=== PATIENT | male | born 1965 | race Hispanic/Latino ===

== ENCOUNTER 2021-05-02 21:35 | Emergency (ER) | payer OTHER, SELFPAY ==
[2021-05-02 21:41] VITALS: BP 143/84; PULSE 61; RESP 18; TEMP 36.6; O2SAT 100
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
[2021-05-02] MEDS: OXYMETAZOLINE HCL 0.05% NAS 15 ML BTL (*BKC) 1 SPRAY NASAL (22:17)
[2021-05-02 22:18] VITALS: BP 126/76; PULSE 62; RESP 16; O2SAT 98
== END 2021-05-02 22:26 | disposition home or self-care (01) ==
PROVIDERS: Emergency Provider Family Medicine
DX: R04.0 Epistaxis (principal); E11.9 Type 2 diabetes mellitus without complications; Z79.84 Long term (current) use of oral hypoglycemic drugs
CPT/HCPCS: 99283; A9270

== ENCOUNTER 2021-09-02 08:25 | Outpatient (CLI) | payer OTHER, SELFPAY ==
--- NOTE | ~2021-09-02 | XR_ITS ---
EXAMINATION: XR foot RT min 3V DATE: 09/02/2021 08:45 INDICATION: Right foot pain. TECHNIQUE: 4 views of right foot were obtained. COMPARISON: None. FINDINGS: Bone alignment is normal. No fracture. There is mild osteoarthritis of first metatarsophala ngeal joint and some of the interphalangeal joints. There are enthesophytes at the posterior and plan tar aspects of calcaneal tuberosity. IMPRESSION: 1. Mild polyarticular osteoarthritis. Reviewed, dictated and finalized at location A. 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
== END 2021-09-02 08:26 ==
PROVIDERS: PCP Nurse Practitioner Family; Visit Provider Nurse Practitioner Family
DX: M19.071 Primary osteoarthritis, right ankle and foot (principal)
CPT/HCPCS: 73630

== ENCOUNTER 2024-04-20 08:22 | Emergency (ER) | payer OTHER, SELFPAY ==
--- NOTE | ~2024-04-20 | XR_ITS ---
EXAMINATION: XR shoulder LT min 2V DATE: 04/20/2024 09:54 INDICATION: Left shoulder pain. TECHNIQUE: 4 views of left shoulder were obtained. COMPARISON: None. FINDINGS: Alignment is normal. No fracture. There is mild osteoarthritis of glenohumeral joint and se juan osteoarthritis of acromioclavicular joint. Subacromial spurring is noted. IMPRESSION: 1. Polyarticular osteoarthritis. Reviewed, dictated and finalized at location A.
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
[2024-04-20 08:27] VITALS: BP 141/84; PULSE 51; RESP 20; TEMP 36.3; O2SAT 100
[2024-04-20 08:32] VITALS: BP 141/84; PULSE 52; RESP 19; O2SAT 100
[2024-04-20 08:46] VITALS: BP 126/81; PULSE 56; RESP 14; O2SAT 100
[2024-04-20 09:01] VITALS: BP 146/82; PULSE 55; RESP 16; O2SAT 100
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
[2024-04-20] MEDS: HYDROcodone/acetaminophen (*CRX) 5-325 MG TABLET 1 TAB PO (09:34)
[2024-04-20 10:31] VITALS: BP 134/82; PULSE 56; RESP 16; TEMP 36.7; O2SAT 99
== END 2024-04-20 10:33 | disposition home or self-care (01) ==
PROVIDERS: Emergency Provider Student in an Organized Health Care Education/Training Program
DX: S19.9XXA Unspecified injury of neck, initial encounter (principal); S49.92XA Unspecified injury of left shoulder and upper arm, initial encounter; S59.901A Unspecified injury of right elbow, initial encounter; S50.811A Abrasion of right forearm, initial encounter; M19.012 Primary osteoarthritis, left shoulder; I10 Essential (primary) hypertension; E11.9 Type 2 diabetes mellitus without complications; Z79.84 Long term (current) use of oral hypoglycemic drugs; V49.40XA Driver injured in collision with unspecified motor vehicles in traffic accident, initial encounter
CPT/HCPCS: 72125; 73030; 73070; 99284; A9270

== ENCOUNTER 2025-05-09 03:37 | Emergency (ER) | payer OTHER, SELFPAY ==
[2025-05-09] VITALS (15 sets, daily range): BP systolic 122–144; BP diastolic 65–84; PULSE 84–91; RESP 14–20; TEMP 37.6–39.5; O2SAT 96–100
--- NOTE | ~2025-05-09 | XR_ITS ---
Examination: XR chest 1V portable Clinical History: uri Comparison: None Technique: Portable AP Findings: Patient slightly rotated. Heart size normal. Subtle hazy opacity right hemithorax likely overlying soft tissue artifact. No acute bony abnormality. IMPRESSION: 1. No acute cardiopulmonary findings given portable technique. Consider PA and lateral films with deep inspiration. Reviewed, dictated and finalized at location R.
--- NOTE | ~2025-05-09 | CT_ITS ---
EXAMINATION: CT abdomen pelvis w con DATE: 05/09/2025 06:08 INDICATION: Abdominal pain 5 days post colonoscopy with polypectomy TECHNIQUE: Computed tomography (CT) of the abdomen and pelvis was performed with 100 mL Omnipaque-350 intravenous contrast. Automated exposure control and iterative reconstruction technique were employed. The dose-length product was 1146.06 mGy-cm. COMPARISON: None FINDINGS: Lung bases are clear. Heart size normal. Atherosclerotic coronary artery calcification. No pericardial or pleural effusion. Liver, gallbladder, spleen, pancreas, bilateral adrenal glands and right kidney are normal. 1.6 cm left renal cyst. Bowels including the appendix are normal. No abnormal wall thic kening or obstruction. Decompressed bladder is unremarkable. No free intraperitoneal gas or fluid. No pathologically enlarged abdominal or pelvic lymphadenopathy. Mild scattered degenerative skeletal changes in the lumbar spine and pelvis IMPRESSION: 1. No acute intra-abdominal/pelvic process. Reviewed, dictated and finalized at location A.
[2025-05-09 04:26] LABS: Hematocrit 44.6 % (42.0-52.0); Hemoglobin 14.1 g/dL (14.0-18.0); Immature Granulocyte Percent A 0.4 % (0-0.5); Immature Platelet Fraction Pct 4.2 % (0.9-11.2); Lymphocytes Absolute Auto 1.55 K/mm3 (0.9-3.2); Mean Corpuscular HGB Conc 31.6 g/dl (32-36); Mean Corpuscular Hemoglobin 28.8 pg (26-34); Mean Corpuscular Volume 91.2 fl (80-100); Nucleated Red Blood Cells Absolute Auto 0.000 K/mm3 (0.0-0.012); Nucleated Red Blood Cells Perc 0.0 % (0.0-0.2); Platelet Count Result 166 k/mm3 (150-375); Red Blood Count 4.89 M/mm3 (4.6-6.20); White Blood Count 10.2 K/mm3 (4.5-10.0)
--- NOTE | 2025-05-09 04:34 | ECG_ITS ---
Test Date: 2025-05-09 04:41:07 Measurements Intervals [place] Rate: 78 P: 10 AL: 150 QRS: 13 QRSD: 98 T: 3 QT: 355 QTc: 406 Interpretive Statements SINUS RHYTHM NORMAL ELECTROCARDIOGRAM No previous ECG available for comparison Electronically Signed On 05-10-2025 15:33:49 CDT by Kan Tariq M.D.
--- NOTE | 2025-05-09 04:35 | PC.NURSE ---
vrbo edp zych - ekg, cxr, covid/flu/rsv swab
--- NOTE | 2025-05-09 04:41 | PC.NURSE ---
red and green top hemolyzed - dali reilly notified
[2025-05-09 05:07] LABS: Add Urine Microscopic? YES; Appearance Urine Clear (Clear); Glucose Urine UA Negative (Negative); Leukocyte Esterase Ur 2+ LEU/UL (Negative); Nitrate Urine Negative (Negative); Non Pathogenic Casts 0-2; Specific Grav Ur 1.017 (1.001-1.035)
[2025-05-09 05:12] LABS: Alanine Aminotransferase 29 U/L (6-50); Albumin Level 4.2 g/dL (3.5-5.1); Alkaline Phosphatase 87 U/L (38-126); Anion Gap 10 mmol/L (4-12); Aspartate Amino Transferase 27 U/L (17-59); Bilirubin,Total 1.0 mg/dL (0.2-1.3); Blood Urea Nitrogen 12 mg/dL (9-20); Calcium 9.1 mg/dL (8.4-10.2); Carbon Dioxide 22 mmol/L (22-30); Chloride 105 mmol/L (98-107); Estimated CRCL calculation 91 ml/min; Estimated Glomerular Filt Rate > 60; Glucose 147 mg/dL (65-110); Potassium 4.0 mmol/L (3.4-5.0); Sodium 137 mmol/L (137-145); Total Protein 7.7 g/dL (6.3-8.2)
[2025-05-09] MEDS: SODIUM CHLORIDE 0.9% IV 2,000 ML 999 ML IV CONT (05:31)
[2025-05-09 05:38] LABS: Influenza A QL RT-PCR Negative (Negative); Influenza B QL RT-PCR Negative (Negative); RSV RNA, RT-PCR Negative (Negative); SARS-CoV-2 RNA PCR Negative (Negative)
[2025-05-09] MEDS: cefTRIAXone 1 GM in SODIUM CHLORIDE 0.9% IV 50 ML 100 ML IVPB (06:38)
--- NOTE | 2025-05-09 06:42 | ED.GENADULT ---
HPI - General Adult General Chief complaint: Upper Respiratory Infection <Geovany Munoz MD - Last Filed: 05/09/25 18:55> Stated complaint: chills <Geovany Munoz MD - Last Filed: 05/09/25 18:55> Time Seen by Provider: 05/09/25 03:59 <Geovany Munoz MD - Last Filed: 05/09/25 18:55> History of Present Illness HPI narrative: This is a 60-year-old male history diabetes presenting for fever and chills. At midnight of last night patient had sudden onset of fever and chills. Patient body aches. He denies chest pain difficulty breathing cough, nausea vomiting or diarrhea. He has had pain on urination for the last week. He has also pain in the left flank. Patient had a colonoscopy with polypectomy 5 days ago. <Geovany Munoz MD - Last Filed: 05/09/25 18:55> Related Data Home medications: Home Medications ?Medication ?Instructions ?Recorded ?Confirmed ?Last Taken ?Type metformin 500 mg tablet mg 05/02/21 Unknown History <Geovany Munoz MD - Last Filed: 05/09/25 18:55> Allergies/adverse reactions: Allergies Allergy/AdvReac Type Severity Reaction Status Date / Time No Known Allergies Allergy Verified 05/09/25 03:52 <Geovany Munoz MD - Last Filed: 05/09/25 18:55> [facility] Past Medical History Medical History: Medical History Diabetes mellitus Hypertension <Geovany Munoz MD - Last Filed: 05/09/25 18:55> Social History Social History: Social History (Updated 04/20/24 @ 10:32 by Richelle Rdz MD) Social History: Initially from [place]; Amharic as second language Has a daughter Smoking status: Never smoker Occupation/Education: occupation 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 <Geovany Munoz MD - Last Filed: 05/09/25 18:55> Course Vital Signs Vital signs: Vital Signs Temperature 103.1 F H 05/09/25 03:42 Pulse Rate 90 05/09/25 03:42 Respiratory Rate 14 05/09/25 03:42 Blood Pressure 139/77 05/09/25 03:42 Pulse Oximetry 99 05/09/25 03:42 Oxygen Delivery Room Air 05/09/25 03:42 Temperature 99.6 F 05/09/25 07:32 Pulse Rate 86 05/09/25 07:32 Respiratory Rate 18 05/09/25 07:32 Blood Pressure 133/76 05/09/25 07:32 Pulse Oximetry 100 05/09/25 07:32 Oxygen Delivery Room Air 05/09/25 03:50 <Geovany Munoz MD - Last Filed: 05/09/25 18:55> Vital Signs Temperature 103.1 F H 05/09/25 03:42 Pulse Rate 90 05/09/25 03:42 Respiratory Rate 14 05/09/25 03:42 Blood Pressure 139/77 05/09/25 03:42 Pulse Oximetry 99 05/09/25 03:42 Oxygen Delivery Room Air 05/09/25 03:42 Temperature 99.6 F 05/09/25 07:32 Pulse Rate 86 05/09/25 07:32 Respiratory Rate 18 05/09/25 07:32 Blood Pressure 133/76 05/09/25 07:32 Pulse Oximetry 100 05/09/25 07:32 Oxygen Delivery Room Air 05/09/25 03:50 <Kulwant Calixto MD - Last Filed: 05/09/25 17:21> Medical Decision Making MDM Narrative Medical decision making narrative: -Course: 6 year male presenting with sudden onset of fever and chills. Febrile on arrival at 103. Patient has been complaining dysuria for 5 days. The lungs are clear and he has no respiratory complaints. He had a colonoscopy 5 days ago but his abdomen is soft nontender no guarding rebound. Urine was indicative infection. Vitals are otherwise stable. White count is 10.2. Patient given fluid resuscitation, 1 dose of ceftriaxone and Tylenol and Toradol. He has been signed out to the physician pending completion of his CT abdomen pelvis unresponsive treatment. Patient care was signed out to me by the overnight physician with CT pending. Patient was treated for pyelonephritis. Patient's white blood cell count is 10.2 with a hemoglobin of 14.1. No significant abnormalities on the CMP. UA was positive for infection with greater than 100 white blood cells and 6-10 RBCs. Patient was started on antibiotics and urine culture was ordered. CT abdomen pelvis was ordered to evaluate for additional pathology and no additional acute findings were identified. Patient will be discharged home with antibiotics for his urinary tract infection. Patient family updated the results of the workup they are comfortable the plan for discharge and close follow-up. <Geovany Munoz MD - Last Filed: 05/09/25 18:55> -Course: 6 year male presenting with sudden onset of fever and chills. Febrile on arrival at 103. Patient has been complaining dysuria for 5 days. The lungs are clear and he has no respiratory complaints. He had a colonoscopy 5 days ago but his abdomen is soft nontender no guarding rebound. Urine was indicative infection. Vitals are otherwise stable. White count is 10.2. Patient given fluid resuscitation, 1 dose of ceftriaxone and Tylenol and Toradol. He has been signed out to the physician pending completion of his CT abdomen pelvis unresponsive treatment. -DDX includes but is not limited to: -Co-morbidities complicating care: -Social determinants of health: -External Chart Review: -Hx from independent Sources: -Independent interpretation of studies: -Discussion of Management/Consultants: -Dx tests considered but not ordered: -Procedures: -Interventions: -Shared decision making / Disposition: -RX --- Patient care was signed out to me by the overnight physician with CT pending. Patient was treated for pyelonephritis. Patient's white blood cell count is 10.2 with a hemoglobin of 14.1. No significant abnormalities on the CMP. UA was positive for infection with greater than 100 white blood cells and 6-10 RBCs. Patient was started on antibiotics and urine culture was ordered. CT abdomen pelvis was ordered to evaluate for additional pathology and no additional acute findings were identified. Patient will be discharged home with antibiotics for his urinary tract infection. Patient family updated the results of the workup they are comfortable the plan for discharge and close follow-up. <Kulwant Calixto MD - Last Filed: 05/09/25 17:21> Differential Diagnosis Differential Diagnosis: Ureteral calculi, urinary tract infection, pyelonephritis, cystitis, colitis, diverticulitis <Kulwant Calixto MD - Last Filed: 05/09/25 17:21> Vital Signs Vital Signs: Vital Signs Temperature 103.1 F H 05/09/25 03:42 Pulse Rate 90 05/09/25 03:42 Respiratory Rate 14 05/09/25 03:42 Blood Pressure 139/77 05/09/25 03:42 Pulse Oximetry 99 05/09/25 03:42 Oxygen Delivery Room Air 05/09/25 03:42 Temperature 99.6 F 05/09/25 07:32 Pulse Rate 86 05/09/25 07:32 Respiratory Rate 18 05/09/25 07:32 Blood Pressure 133/76 05/09/25 07:32 Pulse Oximetry 100 05/09/25 07:32 Oxygen Delivery Room Air 05/09/25 03:50 <Geovany Munoz MD - Last Filed: 05/09/25 18:55> Vital Signs Temperature 103.1 F H 05/09/25 03:42 Pulse Rate 90 05/09/25 03:42 Respiratory Rate 14 05/09/25 03:42 Blood Pressure 139/77 05/09/25 03:42 Pulse Oximetry 99 05/09/25 03:42 Oxygen Delivery Room Air 05/09/25 03:42 Temperature 99.6 F 05/09/25 07:32 Pulse Rate 86 05/09/25 07:32 Respiratory Rate 18 05/09/25 07:32 Blood Pressure 133/76 05/09/25 07:32 Pulse Oximetry 100 05/09/25 07:32 Oxygen Delivery Room Air 05/09/25 03:50 <Kulwant Calixto MD - Last Filed: 05/09/25 17:21> Lab Data Lab results reviewed: Yes I reviewed the patient's lab results. <Kulwant Calixto MD - Last Filed: 05/09/25 17:21> Result diagrams: 05/09/25 04:05 05/09/25 04:51 <Geovany Munoz MD - Last Filed: 05/09/25 18:55> Labs: Lab Results 05/09/25 05/09/25 05/09/25 Range/Units 04:05 04:50 04:51 WBC 10.2 H (4.5-10.0) K/mm3 RBC 4.89 (4.6-6.20) M/mm3 Hgb 14.1 (14.0-18.0) g/dL Hct 44.6 (42.0-52.0) % MCV 91.2 (80-100) fl MCH 28.8 (26-34) pg MCHC 31.6 L (32-36) g/dl RDW 12.9 (11.5-14.5) % Plt Count 166 (150-375) k/mm3 MPV 11.0 H (7.4-10.4) fl Immature Gran % (Auto) 0.4 (0-0.5) % Neut % (Auto) 77.8 H (45.5-73.1) % Lymph % (Auto) 15.2 L (18.3-44.2) % [place] % (Auto) 4.7 (2.6-8.5) % Eos % (Auto) 1.2 (0-4.4) % Baso % (Auto) 0.7 (0.2-1.2) % Lymph # (Auto) 1.55 (0.9-3.2) K/mm3 [place] # (Auto) 0.5 (0.1-0.6) K/mm3 Eos # (Auto) 0.1 (0-0.3) K/mm3 Baso # (Auto) 0.1 (0.0-0.1) K/mm3 Abs Immat Gran (auto) 0.04 H (0.00-0.031) K/mm3 Absolute Neuts (auto) 8.0 H (1.3-6.7) K/mm3 Absolute Nucleated RBC 0.000 (0.0-0.012) K/mm3 Nucleated RBC % 0.0 (0.0-0.2) % % Immature Plt Fraction 4.2 (0.9-11.2) % Sodium 137 (137-145) mmol/L Potassium 4.0 (3.4-5.0) mmol/L Chloride 105 (98-107) mmol/L Carbon Dioxide 22 (22-30) mmol/L Anion Gap 10 (4-12) mmol/L BUN 12 (9-20) mg/dL Creatinine 0.86 (0.7-1.3) mg/dL Estim Creat Clear Calc 91 ml/min Estimated GFR > 60 (59 - ) Glucose 147 H (65-110) mg/dL Lactic Acid (0.7-2.0) mmol/L Calcium 9.1 (8.4-10.2) mg/dL Total Bilirubin 1.0 (0.2-1.3) mg/dL AST 27 (17-59) U/L ALT 29 (6-50) U/L Alkaline Phosphatase 87 (38-126) U/L Total Protein 7.7 (6.3-8.2) g/dL Albumin 4.2 (3.5-5.1) g/dL Urine Color Yellow (Yellow) Urine Appearance Clear (Clear) Urine pH 7.0 (5.0-9.0) Ur Specific [place] 1.017 (1.001-1.035) Urine Protein 1+ H (Negative) mg/dL Urine Glucose (UA) Negative (Negative) mg/dL Urine Ketones Negative (Negative) mg/dL Ur Blood (Man) Trace (Negative) Urine Nitrate Negative (Negative) Urine Bilirubin Negative (Negative) Urine Urobilinogen 1.0 (<2.0) mg/dL Leukocyte Esterase Rfl 2+ H (Negative) TOÑITO/UL Urine RBC 6-10 H (0-2) /hpf Urine WBC >100 H (0-3) /hpf Ur Squamous Epith Cells None seen (Few) /hpf Urine Bacteria Trace /hpf Urine Casts 0-2 Influenza A (RT-PCR) Negative (Negative) Influenza B (RT-PCR) Negative (Negative) RSV (RT-PCR) Negative (Negative) SARS-CoV-2 RNA (RT-PCR) Negative (Negative) 05/09/25 Range/Units 06:16 WBC (4.5-10.0) K/mm3 RBC (4.6-6.20) M/mm3 Hgb (14.0-18.0) g/dL Hct (42.0-52.0) % MCV (80-100) fl MCH (26-34) pg MCHC (32-36) g/dl RDW (11.5-14.5) % Plt Count (150-375) k/mm3 MPV (7.4-10.4) fl Immature Gran % (Auto) (0-0.5) % Neut % (Auto) (45.5-73.1) % Lymph % (Auto) (18.3-44.2) % [place] % (Auto) (2.6-8.5) % Eos % (Auto) (0-4.4) % Baso % (Auto) (0.2-1.2) % Lymph # (Auto) (0.9-3.2) K/mm3 [place] # (Auto) (0.1-0.6) K/mm3 Eos # (Auto) (0-0.3) K/mm3 Baso # (Auto) (0.0-0.1) K/mm3 Abs Immat Gran (auto) (0.00-0.031) K/mm3 Absolute Neuts (auto) (1.3-6.7) K/mm3 Absolute Nucleated RBC (0.0-0.012) K/mm3 Nucleated RBC % (0.0-0.2) % % Immature Plt Fraction (0.9-11.2) % Sodium (137-145) mmol/L Potassium (3.4-5.0) mmol/L Chloride (98-107) mmol/L Carbon Dioxide (22-30) mmol/L Anion Gap (4-12) mmol/L BUN (9-20) mg/dL Creatinine (0.7-1.3) mg/dL Estim Creat Clear Calc ml/min Estimated GFR (59 - ) Glucose (65-110) mg/dL Lactic Acid 1.2 (0.7-2.0) mmol/L Calcium (8.4-10.2) mg/dL Total Bilirubin (0.2-1.3) mg/dL AST (17-59) U/L ALT (6-50) U/L Alkaline Phosphatase (38-126) U/L Total Protein (6.3-8.2) g/dL Albumin (3.5-5.1) g/dL Urine Color (Yellow) Urine Appearance (Clear) Urine pH (5.0-9.0) Ur Specific [place] (1.001-1.035) Urine Protein (Negative) mg/dL Urine Glucose (UA) (Negative) mg/dL Urine Ketones (Negative) mg/dL Ur Blood (Man) (Negative) Urine Nitrate (Negative) Urine Bilirubin (Negative) Urine Urobilinogen (<2.0) mg/dL Leukocyte Esterase Rfl (Negative) TOÑITO/UL Urine RBC (0-2) /hpf Urine WBC (0-3) /hpf Ur Squamous Epith Cells (Few) /hpf Urine Bacteria /hpf Urine Casts Influenza A (RT-PCR) (Negative) Influenza B (RT-PCR) (Negative) RSV (RT-PCR) (Negative) SARS-CoV-2 RNA (RT-PCR) (Negative) <Geovany Munoz MD - Last Filed: 05/09/25 18:55> Lab Results 05/09/25 05/09/25 05/09/25 Range/Units 04:05 04:50 04:51 WBC 10.2 H (4.5-10.0) K/mm3 RBC 4.89 (4.6-6.20) M/mm3 Hgb 14.1 (14.0-18.0) g/dL Hct 44.6 (42.0-52.0) % MCV 91.2 (80-100) fl MCH 28.8 (26-34) pg MCHC 31.6 L (32-36) g/dl RDW 12.9 (11.5-14.5) % Plt Count 166 (150-375) k/mm3 MPV 11.0 H (7.4-10.4) fl Immature Gran % (Auto) 0.4 (0-0.5) % Neut % (Auto) 77.8 H (45.5-73.1) % Lymph % (Auto) 15.2 L (18.3-44.2) % [place] % (Auto) 4.7 (2.6-8.5) % Eos % (Auto) 1.2 (0-4.4) % Baso % (Auto) 0.7 (0.2-1.2) % Lymph # (Auto) 1.55 (0.9-3.2) K/mm3 [place] # (Auto) 0.5 (0.1-0.6) K/mm3 Eos # (Auto) 0.1 (0-0.3) K/mm3 Baso # (Auto) 0.1 (0.0-0.1) K/mm3 Abs Immat Gran (auto) 0.04 H (0.00-0.031) K/mm3 Absolute Neuts (auto) 8.0 H (1.3-6.7) K/mm3 Absolute Nucleated RBC 0.000 (0.0-0.012) K/mm3 Nucleated RBC % 0.0 (0.0-0.2) % % Immature Plt Fraction 4.2 (0.9-11.2) % Sodium 137 (137-145) mmol/L Potassium 4.0 (3.4-5.0) mmol/L Chloride 105 (98-107) mmol/L Carbon Dioxide 22 (22-30) mmol/L Anion Gap 10 (4-12) mmol/L BUN 12 (9-20) mg/dL Creatinine 0.86 (0.7-1.3) mg/dL Estim Creat Clear Calc 91 ml/min Estimated GFR > 60 (59 - ) Glucose 147 H (65-110) mg/dL Lactic Acid (0.7-2.0) mmol/L Calcium 9.1 (8.4-10.2) mg/dL Total Bilirubin 1.0 (0.2-1.3) mg/dL AST 27 (17-59) U/L ALT 29 (6-50) U/L Alkaline Phosphatase 87 (38-126) U/L Total Protein 7.7 (6.3-8.2) g/dL Albumin 4.2 (3.5-5.1) g/dL Urine Color Yellow (Yellow) Urine Appearance Clear (Clear) Urine pH 7.0 (5.0-9.0) Ur Specific [place] 1.017 (1.001-1.035) Urine Protein 1+ H (Negative) mg/dL Urine Glucose (UA) Negative (Negative) mg/dL Urine Ketones Negative (Negative) mg/dL Ur Blood (Man) Trace (Negative) Urine Nitrate Negative (Negative) Urine Bilirubin Negative (Negative) Urine Urobilinogen 1.0 (<2.0) mg/dL Leukocyte Esterase Rfl 2+ H (Negative) TOÑITO/UL Urine RBC 6-10 H (0-2) /hpf Urine WBC >100 H (0-3) /hpf Ur Squamous Epith Cells None seen (Few) /hpf Urine Bacteria Trace /hpf Urine Casts 0-2 Influenza A (RT-PCR) Negative (Negative) Influenza B (RT-PCR) Negative (Negative) RSV (RT-PCR) Negative (Negative) SARS-CoV-2 RNA (RT-PCR) Negative (Negative) 05/09/25 Range/Units 06:16 WBC (4.5-10.0) K/mm3 RBC (4.6-6.20) M/mm3 Hgb (14.0-18.0) g/dL Hct (42.0-52.0) % MCV (80-100) fl MCH (26-34) pg MCHC (32-36) g/dl RDW (11.5-14.5) % Plt Count (150-375) k/mm3 MPV (7.4-10.4) fl Immature Gran % (Auto) (0-0.5) % Neut % (Auto) (45.5-73.1) % Lymph % (Auto) (18.3-44.2) % [place] % (Auto) (2.6-8.5) % Eos % (Auto) (0-4.4) % Baso % (Auto) (0.2-1.2) % Lymph # (Auto) (0.9-3.2) K/mm3 [place] # (Auto) (0.1-0.6) K/mm3 Eos # (Auto) (0-0.3) K/mm3 Baso # (Auto) (0.0-0.1) K/mm3 Abs Immat Gran (auto) (0.00-0.031) K/mm3 Absolute Neuts (auto) (1.3-6.7) K/mm3 Absolute Nucleated RBC (0.0-0.012) K/mm3 Nucleated RBC % (0.0-0.2) % % Immature Plt Fraction (0.9-11.2) % Sodium (137-145) mmol/L Potassium (3.4-5.0) mmol/L Chloride (98-107) mmol/L Carbon Dioxide (22-30) mmol/L Anion Gap (4-12) mmol/L BUN (9-20) mg/dL Creatinine (0.7-1.3) mg/dL Estim Creat Clear Calc ml/min Estimated GFR (59 - ) Glucose (65-110) mg/dL Lactic Acid 1.2 (0.7-2.0) mmol/L Calcium (8.4-10.2) mg/dL Total Bilirubin (0.2-1.3) mg/dL AST (17-59) U/L ALT (6-50) U/L Alkaline Phosphatase (38-126) U/L Total Protein (6.3-8.2) g/dL Albumin (3.5-5.1) g/dL Urine Color (Yellow) Urine Appearance (Clear) Urine pH (5.0-9.0) Ur Specific [place] (1.001-1.035) Urine Protein (Negative) mg/dL Urine Glucose (UA) (Negative) mg/dL Urine Ketones (Negative) mg/dL Ur Blood (Man) (Negative) Urine Nitrate (Negative) Urine Bilirubin (Negative) Urine Urobilinogen (<2.0) mg/dL Leukocyte Esterase Rfl (Negative) TOÑITO/UL Urine RBC (0-2) /hpf Urine WBC (0-3) /hpf Ur Squamous Epith Cells (Few) /hpf Urine Bacteria /hpf Urine Casts Influenza A (RT-PCR) (Negative) Influenza B (RT-PCR) (Negative) RSV (RT-PCR) (Negative) SARS-CoV-2 RNA (RT-PCR) (Negative) <Kulwant Calixto MD - Last Filed: 05/09/25 17:21> Imaging Data Radiologist's impression: Impressions Chest X-Ray 05/09/25 07:07 IMPRESSION: 1. No acute cardiopulmonary findings given portable technique. Consider PA and lateral films with deep inspiration. Abdomen/Pelvis CT 05/09/25 07:26 IMPRESSION: 1. No acute intra-abdominal/pelvic process. <Kulwant Calixto MD - Last Filed: 05/09/25 17:21> Discharge Plan Discharge Clinical Impression: Urinary tract infection <Geovany Munoz MD - Last Filed: 05/09/25 18:55> Patient Disposition: Home <Geovany Munoz MD - Last Filed: 05/09/25 18:55> Condition: Stable <Geovany Munoz MD - Last Filed: 05/09/25 18:55> Instructions: Antibiotic Form, Urinary Tract Infection in Men (DC) <Geovany Munoz MD - Last Filed: 05/09/25 18:55> Additional Instructions: Tylenol and ibuprofen for fever and for body aches. Antibiotic as directed until completed. Have close follow-up with your primary care physician. If you have any worsening symptoms then please call or return to the emergency department. <Geovany Munoz MD - Last Filed: 05/09/25 18:55> Patient Language: Slovenian <Geovany Munoz MD - Last Filed: 05/09/25 18:55> Prescriptions: New cephalexin 500 mg capsule 500 mg PO Q8H 7 Days Qty: 21 0RF No Action metformin 500 mg tablet acetaminophen 500 mg capsule 1,000 mg PO Q6H PRN (Reason: pain) Qty: 20 0RF ibuprofen 600 mg tablet 600 mg PO TID PRN (Reason: pain) Qty: 20 0RF methocarbamol 750 mg tablet 750 mg PO HS Qty: 7 0RF <Geovany Munoz MD - Last Filed: 05/09/25 18:55> Follow-up/Referrals: UNKNOWN,DOCTOR [Primary Care Provider] <Geovany Munoz MD - Last Filed: 05/09/25 18:55> Stand Alone Forms: Work/School Release IP <Geovany Munoz MD - Last Filed: 05/09/25 18:55>
[2025-05-09] MEDS: ACETAMINOPHEN 500 MG TABLET 1000 MG PO (06:54)
[2025-05-09] MEDS: KETOROLAC 15 MG/ML VIAL (*BKC) IV PUSH (06:54)
== END 2025-05-09 08:18 | disposition home or self-care (01) ==
PROVIDERS: Emergency Provider Emergency Medicine
DX: N39.0 Urinary tract infection, site not specified (principal); Z20.822 Contact with and (suspected) exposure to COVID-19; I10 Essential (primary) hypertension; E11.9 Type 2 diabetes mellitus without complications; Z86.0100 Personal history of colon polyps, unspecified; Z79.84 Long term (current) use of oral hypoglycemic drugs
CPT/HCPCS: 36415; 71045; 74177; 80053; 81001; 83605; 85025; 85055; 87040; 87077; 87086; 87186; 87637; 93005; 96365; 96375; 99284; A9270; J0696; J1885; J7030; Q9967

== ENCOUNTER 2025-05-10 16:29 | Inpatient (IN) | payer OTHER, SELFPAY ==
[2025-05-10 16:32] VITALS: BP 127/68; PULSE 66; RESP 16; TEMP 36.6; O2SAT 100
--- NOTE | 2025-05-10 16:37 | ED_ITS ---
HPI - Recheck/Abnormal Lab/Rx General Chief Complaint: Recheck/Abnormal Lab/Rx <Efren Mendes APRN - Last Filed: 05/10/25 16:39> Stated Complaint: +BLOOD CULTURES DRAWN 05/09 <Efren Mendes APRN - Last Filed: 05/10/25 16:39> Time Seen by Provider: 05/10/25 17:11 <Efren Mendes APRN - Last Filed: 05/10/25 16:39> Focused HPI: 60-year-old male presents to the ER complaining of positive blood cultures. Patient said into the ER for positive blood culture. Patient was seen here yesterday diagnosed with the UTI was given a dose of ceftriaxone discharged on cephalexin. Patient said last night took a dose of cephalexin a got home and he vomited once. Patient says he was able to get another dose down this morning has not vomited since. Patient reports feeling better today but does report some chills and fevers this morning. Patient denies any abdominal pain, back pain, flank pain, diarrhea, chest pain, difficulty breathing, or symptoms. Patient's blood culture state they are pending but did grow some type of bacteria as yet to be identified. GENERAL: Well-appearing, well-nourished, and in no acute distress. HEAD: Normocephalic, atraumatic. CHEST: Clear to auscultation. ?No respiratory distress. HEART: Regular rate and rhythm.? NEURO: ?Alert and oriented x3. GI: NONTENDER, NONDISTENDED, FLAT, SOFT. BOWEL SOUNDS PRESENT. No guarding or rigidity. No rebound tenderness. No CVA tenderness. Patient screened in triage and initial orders placed.? ?Additional care and disposition to be based upon?diagnostic testing and treatment. <Efren Mendes APRN - Last Filed: 05/10/25 16:39> Related Data Home Medications: Home Medications ?Medication ?Instructions ?Recorded ?Confirmed ?Last Taken ?Type metformin 500 mg tablet mg 05/02/21 Unknown History <Efren Mendes APRN - Last Filed: 05/10/25 16:39> Allergies/Adverse Reactions: Allergies Allergy/AdvReac Type Severity Reaction Status Date / Time No Known Allergies Allergy Verified 05/09/25 03:52 <Efren Mendes APRN - Last Filed: 05/10/25 16:39> Review of Systems 2 Review of Systems: All systems reviewed & are unremarkable except as noted in HPI and below <Chanda Nunn PA-C - Last Filed: 05/10/25 18:31> PMFSH Past Medical History Medical History: Medical History Diabetes mellitus Hypertension <Efren Mendes APRN - Last Filed: 05/10/25 16:39> Social History Social History: Social History (Updated 04/20/24 @ 10:32 by Richelle Rdz MD) Social History: Initially from [place]; Faroese as second language Has a daughter Smoking status: Never smoker Occupation/Education: occupation 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 HEAD: Normocephalic, atraumatic. EYES: EOMI. ENT: Nares clear, no rhinorrhea or epistaxis. Mucous membranes moist. Oropharynx without tonsillar hypertrophy exudate or other lesions. NECK: Supple. No adenopathy or masses. CHEST: Clear to auscultation. No respiratory distress. No wheezes rales or rhonchi HEART: Regular rate and rhythm. No murmur heard. Normal peripheral pulses. ABDOMEN: Soft, nontender, nondistended, normal active bowel sounds. EXTREMITIES: Normal range of motion. No edema. SKIN: Warm, dry, no rash. NEURO: No focal deficits. Alert and oriented x3. PSYCH: Normal mood and affect <Chanda Nunn PA-C - Last Filed: 05/10/25 18:31> Course Course Emergency Course: Patient and family updated on workup and need for admission <Chanda Nunn PA-C - Last Filed: 05/10/25 18:31> STREET ROLLER ENGINEER/PA Physician Supervision This visit was performed by both a physician and an APC. I performed all aspects of the MDM as documented. <Kulwant Calixto MD - Last Filed: 05/10/25 18:49> Consultations Consultation #1: Spoke with hospitalist about patient and workup who accepts admission < Chanda Nunn PA-C - Last Filed: 05/10/25 18:31> Date: 05/10/25 <Chanda Nunn PA-C - Last Filed: 05/10/25 18:31> Vital Signs Vital signs: Vital Signs Temperature 97.8 F 05/10/25 16:32 Pulse Rate 66 05/10/25 16:32 Respiratory Rate 16 05/10/25 16:32 Blood Pressure 127/68 05/10/25 16:32 Pulse Oximetry 100 05/10/25 16:32 Oxygen Delivery Room Air 05/10/25 16:32 Temperature 97.8 F 05/10/25 16:32 Pulse Rate 79 05/10/25 18:39 Respiratory Rate 20 05/10/25 18:39 Blood Pressure 125/95 H 05/10/25 18:39 Pulse Oximetry 100 05/10/25 18:39 Oxygen Delivery Room Air 05/10/25 16:32 <Efren Mendes APRN - Last Filed: 05/10/25 16:39> Vital Signs Temperature 97.8 F 05/10/25 16:32 Pulse Rate 66 05/10/25 16:32 Respiratory Rate 16 05/10/25 16:32 Blood Pressure 127/68 05/10/25 16:32 Pulse Oximetry 100 05/10/25 16:32 Oxygen Delivery Room Air 05/10/25 16:32 Temperature 97.8 F 05/10/25 16:32 Pulse Rate 79 05/10/25 18:39 Respiratory Rate 20 05/10/25 18:39 Blood Pressure 125/95 H 05/10/25 18:39 Pulse Oximetry 100 05/10/25 18:39 Oxygen Delivery Room Air 05/10/25 16:32 <Chanda Nunn PA-C - Last Filed: 05/10/25 18:31> Vital Signs Temperature 97.8 F 05/10/25 16:32 Pulse Rate 66 05/10/25 16:32 Respiratory Rate 16 05/10/25 16:32 Blood Pressure 127/68 05/10/25 16:32 Pulse Oximetry 100 05/10/25 16:32 Oxygen Delivery Room Air 05/10/25 16:32 Temperature 97.8 F 05/10/25 16:32 Pulse Rate 79 05/10/25 18:39 Respiratory Rate 20 05/10/25 18:39 Blood Pressure 125/95 H 05/10/25 18:39 Pulse Oximetry 100 05/10/25 18:39 Oxygen Delivery Room Air 05/10/25 16:32 <Kulwant Calixto MD - Last Filed: 05/10/25 18:49> MDM - Recheck/Abnormal Lab/Rx MDM Narrative Medical decision making narrative: Patient presents emergency department for positive blood cultures. Was seen in the ER yesterday and diagnosed with UTI. Called with results and told to come to the ER. He is afebrile and nontoxic appearing. His vitals are stable. CBC with mild leukocytosis to 10.4. Metabolic panel with normal kidney function. Urine still does show evidence of infection. This was sent for culture, new set of blood cultures obtained. Previous blood cultures showing Gram-negative bacilli. Patient will be started on IV Rocephin. Spoke with hospitalist about patient and workup who accepts admission <ELLEN Das - Last Filed: 05/10/25 18:31> Patient presents emergency department for positive blood cultures. Was seen in the ER yesterday and diagnosed with UTI. Called with results and told to come to the ER. He is afebrile and nontoxic appearing. His vitals are stable. CBC with mild leukocytosis to 10.4. Metabolic panel with normal kidney function. Urine still does show evidence of infection. This was sent for culture, new set of blood cultures obtained. Previous blood cultures showing Gram-negative bacilli. Patient will be started on IV Rocephin. Spoke with hospitalist about patient and workup who accepts admission This visit was performed by both a physician and an APC. I performed all aspects of the MDM as documented. <Kulwant Calixto MD - Last Filed: 05/10/25 18:49> Differential Diagnosis Differential diagnosis: Likely other (UTI, pyelonephritis, bacteremia, sepsis) <Chanda Nunn PA-C - Last Filed: 05/10/25 18:31> Medical Records Attestation: I reviewed the patient's medical records. <Chanda Nunn PA-C - Last Filed: 05/10/25 18:31> Medical records narrative: CT abdomen pelvis (05/09): FINDINGS: Lung bases are clear. Heart size normal. Atherosclerotic coronary artery calcification. No pericardial or pleural effusion. Liver, gallbladder, spleen, pancreas, bilateral adrenal glands and right kidney are normal. 1.6 cm left renal cyst. Bowels including the appendix are normal. No abnormal wall thickening or obstruction. Decompressed bladder is unremarkable. No free intraperitoneal gas or fluid. No pathologically enlarged abdominal or pelvic lymphadenopathy. Mild scattered degenerative skeletal changes in the lumbar spine and pelvis IMPRESSION: 1. No acute intra-abdominal/pelvic process. <Chanda Nunn PA-C - Last Filed: 05/10/25 18:31> Lab Data Attestation: I reviewed the patient's lab results. <Chanda Nunn PA-C - Last Filed: 05/10/25 18:31> Result diagrams: 05/10/25 16:52 05/10/25 16:52 <Efren Mendes APRN - Last Filed: 05/10/25 16:39> Labs: Lab Results 05/10/25 05/10/25 Range/Units 16:52 16:55 WBC 10.4 H (4.5-10.0) K/mm3 RBC 4.45 L (4.6-6.20) M/mm3 Hgb 13.1 L (14.0-18.0) g/dL Hct 39.8 L (42.0-52.0) % MCV 89.4 (80-100) fl MCH 29.4 (26-34) pg MCHC 32.9 (32-36) g/dl RDW 13.0 (11.5-14.5) % Plt Count 170 (150-375) k/mm3 MPV 10.5 H (7.4-10.4) fl Immature Gran % (Auto) 0.4 (0-0.5) % Neut % (Auto) 68.7 (45.5-73.1) % Lymph % (Auto) 21.3 (18.3-44.2) % [place] % (Auto) 8.2 (2.6-8.5) % Eos % (Auto) 0.8 (0-4.4) % Baso % (Auto) 0.6 (0.2-1.2) % Lymph # (Auto) 2.21 (0.9-3.2) K/mm3 [place] # (Auto) 0.9 H (0.1-0.6) K/mm3 Eos # (Auto) 0.1 (0-0.3) K/mm3 Baso # (Auto) 0.1 (0.0-0.1) K/mm3 Abs Immat Gran (auto) 0.04 H (0.00-0.031) K/mm3 Absolute Neuts (auto) 7.2 H (1.3-6.7) K/mm3 Absolute Nucleated RBC 0.000 (0.0-0.012) K/mm3 Nucleated RBC % 0.0 (0.0-0.2) % Sodium 136 L (137-145) mmol/L Potassium 4.6 (3.4-5.0) mmol/L Chloride 105 (98-107) mmol/L Carbon Dioxide 23 (22-30) mmol/L Anion Gap 8 (4-12) mmol/L BUN 12 (9-20) mg/dL Creatinine 0.91 (0.7-1.3) mg/dL Estim Creat Clear Calc 88 ml/min Estimated GFR > 60 (59 - ) Glucose 115 H (65-110) mg/dL Lactic Acid 1.2 (0.7-2.0) mmol/L Calcium 8.7 (8.4-10.2) mg/dL Total Bilirubin 0.6 (0.2-1.3) mg/dL AST 35 (17-59) U/L ALT 26 (6-50) U/L Alkaline Phosphatase 68 (38-126) U/L Total Protein 7.9 (6.3-8.2) g/dL Albumin 4.1 (3.5-5.1) g/dL Urine Color Yellow (Yellow) Urine Appearance Clear (Clear) Urine pH 6.0 (5.0-9.0) Ur Specific [place] 1.017 (1.001-1.035) Urine Protein 1+ H (Negative) mg/dL Urine Glucose (UA) Negative (Negative) mg/dL Urine Ketones Negative (Negative) mg/dL Ur Blood (Man) Non-hemolyzed trace (Negative) Urine Nitrate Negative (Negative) Urine Bilirubin Negative (Negative) Urine Urobilinogen 1.0 (<2.0) mg/dL Leukocyte Esterase Rfl 2+ H (Negative) TOÑITO/UL Urine RBC 3-5 H (0-2) /hpf Urine WBC 11-20 H (0-3) /hpf Ur Squamous Epith Cells None seen (Few) /hpf Urine Bacteria None seen /hpf Urine Casts 0-2 <Efren Mendes, HUMAN RESOURCES SPECIALIST - Last Filed: 05/10/25 16:39> Lab Results 05/10/25 05/10/25 Range/Units 16:52 16:55 WBC 10.4 H (4.5-10.0) K/mm3 RBC 4.45 L (4.6-6.20) M/mm3 Hgb 13.1 L (14.0-18.0) g/dL Hct 39.8 L (42.0-52.0) % MCV 89.4 (80-100) fl MCH 29.4 (26-34) pg MCHC 32.9 (32-36) g/dl RDW 13.0 (11.5-14.5) % Plt Count 170 (150-375) k/mm3 MPV 10.5 H (7.4-10.4) fl Immature Gran % (Auto) 0.4 (0-0.5) % Neut % (Auto) 68.7 (45.5-73.1) % Lymph % (Auto) 21.3 (18.3-44.2) % [place] % (Auto) 8.2 (2.6-8.5) % Eos % (Auto) 0.8 (0-4.4) % Baso % (Auto) 0.6 (0.2-1.2) % Lymph # (Auto) 2.21 (0.9-3.2) K/mm3 [place] # (Auto) 0.9 H (0.1-0.6) K/mm3 Eos # (Auto) 0.1 (0-0.3) K/mm3 Baso # (Auto) 0.1 (0.0-0.1) K/mm3 Abs Immat Gran (auto) 0.04 H (0.00-0.031) K/mm3 Absolute Neuts (auto) 7.2 H (1.3-6.7) K/mm3 Absolute Nucleated RBC 0.000 (0.0-0.012) K/mm3 Nucleated RBC % 0.0 (0.0-0.2) % Sodium 136 L (137-145) mmol/L Potassium 4.6 (3.4-5.0) mmol/L Chloride 105 (98-107) mmol/L Carbon Dioxide 23 (22-30) mmol/L Anion Gap 8 (4-12) mmol/L BUN 12 (9-20) mg/dL Creatinine 0.91 (0.7-1.3) mg/dL Estim Creat Clear Calc 88 ml/min Estimated GFR > 60 (59 - ) Glucose 115 H (65-110) mg/dL Lactic Acid 1.2 (0.7-2.0) mmol/L Calcium 8.7 (8.4-10.2) mg/dL Total Bilirubin 0.6 (0.2-1.3) mg/dL AST 35 (17-59) U/L ALT 26 (6-50) U/L Alkaline Phosphatase 68 (38-126) U/L Total Protein 7.9 (6.3-8.2) g/dL Albumin 4.1 (3.5-5.1) g/dL Urine Color Yellow (Yellow) Urine Appearance Clear (Clear) Urine pH 6.0 (5.0-9.0) Ur Specific [place] 1.017 (1.001-1.035) Urine Protein 1+ H (Negative) mg/dL Urine Glucose (UA) Negative (Negative) mg/dL Urine Ketones Negative (Negative) mg/dL Ur Blood (Man) Non-hemolyzed trace (Negative) Urine Nitrate Negative (Negative) Urine Bilirubin Negative (Negative) Urine Urobilinogen 1.0 (<2.0) mg/dL Leukocyte Esterase Rfl 2+ H (Negative) TOÑITO/UL Urine RBC 3-5 H (0-2) /hpf Urine WBC 11-20 H (0-3) /hpf Ur Squamous Epith Cells None seen (Few) /hpf Urine Bacteria None seen /hpf Urine Casts 0-2 <Chanda Nunn PA-C - Last Filed: 05/10/25 18:31> Lab Results 05/10/25 05/10/25 Range/Units 16:52 16:55 WBC 10.4 H (4.5-10.0) K/mm3 RBC 4.45 L (4.6-6.20) M/mm3 Hgb 13.1 L (14.0-18.0) g/dL Hct 39.8 L (42.0-52.0) % MCV 89.4 (80-100) fl MCH 29.4 (26-34) pg MCHC 32.9 (32-36) g/dl RDW 13.0 (11.5-14.5) % Plt Count 170 (150-375) k/mm3 MPV 10.5 H (7.4-10.4) fl Immature Gran % (Auto) 0.4 (0-0.5) % Neut % (Auto) 68.7 (45.5-73.1) % Lymph % (Auto) 21.3 (18.3-44.2) % [place] % (Auto) 8.2 (2.6-8.5) % Eos % (Auto) 0.8 (0-4.4) % Baso % (Auto) 0.6 (0.2-1.2) % Lymph # (Auto) 2.21 (0.9-3.2) K/mm3 [place] # (Auto) 0.9 H (0.1-0.6) K/mm3 Eos # (Auto) 0.1 (0-0.3) K/mm3 Baso # (Auto) 0.1 (0.0-0.1) K/mm3 Abs Immat Gran (auto) 0.04 H (0.00-0.031) K/mm3 Absolute Neuts (auto) 7.2 H (1.3-6.7) K/mm3 Absolute Nucleated RBC 0.000 (0.0-0.012) K/mm3 Nucleated RBC % 0.0 (0.0-0.2) % Sodium 136 L (137-145) mmol/L Potassium 4.6 (3.4-5.0) mmol/L Chloride 105 (98-107) mmol/L Carbon Dioxide 23 (22-30) mmol/L Anion Gap 8 (4-12) mmol/L BUN 12 (9-20) mg/dL Creatinine 0.91 (0.7-1.3) mg/dL Estim Creat Clear Calc 88 ml/min Estimated GFR > 60 (59 - ) Glucose 115 H (65-110) mg/dL Lactic Acid 1.2 (0.7-2.0) mmol/L Calcium 8.7 (8.4-10.2) mg/dL Total Bilirubin 0.6 (0.2-1.3) mg/dL AST 35 (17-59) U/L ALT 26 (6-50) U/L Alkaline Phosphatase 68 (38-126) U/L Total Protein 7.9 (6.3-8.2) g/dL Albumin 4.1 (3.5-5.1) g/dL Urine Color Yellow (Yellow) Urine Appearance Clear (Clear) Urine pH 6.0 (5.0-9.0) Ur Specific [place] 1.017 (1.001-1.035) Urine Protein 1+ H (Negative) mg/dL Urine Glucose (UA) Negative (Negative) mg/dL Urine Ketones Negative (Negative) mg/dL Ur Blood (Man) Non-hemolyzed trace (Negative) Urine Nitrate Negative (Negative) Urine Bilirubin Negative (Negative) Urine Urobilinogen 1.0 (<2.0) mg/dL Leukocyte Esterase Rfl 2+ H (Negative) TOÑITO/UL Urine RBC 3-5 H (0-2) /hpf Urine WBC 11-20 H (0-3) /hpf Ur Squamous Epith Cells None seen (Few) /hpf Urine Bacteria None seen /hpf Urine Casts 0-2 <Kulwant Calixto MD - Last Filed: 05/10/25 18:49> Critical Care Time Critical Care Time Critical Care Time: No <Chanda Nunn PA-C - Last Filed: 05/10/25 18:31> Discharge Plan Discharge Clinical Impression: Bacteremia <Efren Mendes APRN - Last Filed: 05/10/25 16:39> Patient Disposition: Still a Patient <Efren Mendes APRN - Last Filed: 05/10/25 16:39> Condition: Stable <Efren Mendes APRN - Last Filed: 05/10/25 16:39> Patient Language: [place] <Efren Mendes APRN - Last Filed: 05/10/25 16:39> Prescriptions: No Action cephalexin 500 mg capsule 500 mg PO Q8H 7 Days Qty: 21 0RF metformin 500 mg tablet acetaminophen 500 mg capsule 1,000 mg PO Q6H PRN (Reason: pain) Qty: 20 0RF ibuprofen 600 mg tablet 600 mg PO TID PRN (Reason: pain) Qty: 20 0RF methocarbamol 750 mg tablet 750 mg PO HS Qty: 7 0RF <Efren Mendes APRN - Last Filed: 05/10/25 16:39> Follow-up/Referrals: UNKNOWN,DOCTOR [Primary Care Provider] <Efren Mendes APRN - Last Filed: 05/10/25 16:39>
[2025-05-10 16:57] LABS: Hematocrit 39.8 % (42.0-52.0); Hemoglobin 13.1 g/dL (14.0-18.0); Immature Granulocyte Percent A 0.4 % (0-0.5); Lymphocytes Absolute Auto 2.21 K/mm3 (0.9-3.2); Mean Corpuscular HGB Conc 32.9 g/dl (32-36); Mean Corpuscular Hemoglobin 29.4 pg (26-34); Mean Corpuscular Volume 89.4 fl (80-100); Nucleated Red Blood Cells Absolute Auto 0.000 K/mm3 (0.0-0.012); Nucleated Red Blood Cells Perc 0.0 % (0.0-0.2); Platelet Count Result 170 k/mm3 (150-375); Red Blood Count 4.45 M/mm3 (4.6-6.20); White Blood Count 10.4 K/mm3 (4.5-10.0)
[2025-05-10 17:08] LABS: Add Urine Microscopic? YES; Appearance Urine Clear (Clear); Glucose Urine UA Negative (Negative); Leukocyte Esterase Ur 2+ LEU/UL (Negative); Nitrate Urine Negative (Negative); Non Pathogenic Casts 0-2; Specific Grav Ur 1.017 (1.001-1.035)
[2025-05-10 17:09] LABS: Alanine Aminotransferase 26 U/L (6-50); Albumin Level 4.1 g/dL (3.5-5.1); Alkaline Phosphatase 68 U/L (38-126); Anion Gap 8 mmol/L (4-12); Aspartate Amino Transferase 35 U/L (17-59); Bilirubin,Total 0.6 mg/dL (0.2-1.3); Blood Urea Nitrogen 12 mg/dL (9-20); Calcium 8.7 mg/dL (8.4-10.2); Carbon Dioxide 23 mmol/L (22-30); Chloride 105 mmol/L (98-107); Estimated CRCL calculation 88 ml/min; Estimated Glomerular Filt Rate > 60; Glucose 115 mg/dL (65-110); Potassium 4.6 mmol/L (3.4-5.0); Sodium 136 mmol/L (137-145); Total Protein 7.9 g/dL (6.3-8.2)
[2025-05-10 17:12] VITALS: BP 130/84; PULSE 62; RESP 16; O2SAT 100
[2025-05-10] MEDS: ACETAMINOPHEN 500 MG TABLET 1000 MG PO (18:19)
[2025-05-10 18:39] VITALS: BP 125/95; PULSE 79; RESP 20; O2SAT 100
[2025-05-10] MEDS: cefTRIAXone 1 GM in SODIUM CHLORIDE 0.9% IV 50 ML 100 ML IVPB (18:49)
[2025-05-10 21:21] VITALS: BMI 38.4
--- NOTE | 2025-05-10 21:24 | ADMGEN ---
This patient, Sebastian Herron, was admitted to [facility] Surg Room 326-01. Patient/family oriented to hospital policies and general routines including ID bracelet, bed and alarms, visiting hours, pain management, procedures, bathroom and other care routines, personal items, smoking policy, room service/diet, and visiting hours. Information on how to activate the Rapid Response Team has been discussed. Patient/Family are encouraged to report perceived risks to care and to ask questions if they do not understand what they are told or what they should do.
[2025-05-10 21:55] VITALS: BP 129/78; PULSE 71; RESP 16; TEMP 37.2; O2SAT 99
[2025-05-10 21:57] VITALS: BMI 38.4
[2025-05-10 22:00] VITALS: BP 129/78; PULSE 71; RESP 16; TEMP 37.3; O2SAT 99
[2025-05-10 22:35] LABS: Hemoglobin A1C 6.9 % (<5.7)
[2025-05-10 22:52] LABS: Procalcitonin 0.7 ng/mL
[2025-05-10 23:02] LABS: CRP 18.5 mg/dL (<1.0)
[2025-05-11 05:52] VITALS: TEMP 39.3
[2025-05-11] MEDS: ACETAMINOPHEN 500 MG TABLET 1000 MG PO ×2 (05:52→17:13)
[2025-05-11 06:15] LABS: Hematocrit 38.7 % (42.0-52.0); Hemoglobin 13.2 g/dL (14.0-18.0); Immature Granulocyte Percent A 0.3 % (0-0.5); Lymphocytes Absolute Auto 1.74 K/mm3 (0.9-3.2); Mean Corpuscular HGB Conc 34.1 g/dl (32-36); Mean Corpuscular Hemoglobin 30.3 pg (26-34); Mean Corpuscular Volume 88.8 fl (80-100); Nucleated Red Blood Cells Absolute Auto 0.000 K/mm3 (0.0-0.012); Nucleated Red Blood Cells Perc 0.0 % (0.0-0.2); Platelet Count Result 174 k/mm3 (150-375); Red Blood Count 4.36 M/mm3 (4.6-6.20); White Blood Count 9.3 K/mm3 (4.5-10.0)
[2025-05-11 06:39] LABS: Anion Gap 11 mmol/L (4-12); Blood Urea Nitrogen 11 mg/dL (9-20); Calcium 8.5 mg/dL (8.4-10.2); Carbon Dioxide 20 mmol/L (22-30); Chloride 106 mmol/L (98-107); Estimated CRCL calculation 94 ml/min; Estimated Glomerular Filt Rate > 60; Glucose 135 mg/dL (65-110); Magnesium 2.0 mg/dL (1.6-2.3); Potassium 4.4 mmol/L (3.4-5.0); Sodium 137 mmol/L (137-145)
[2025-05-11 06:45] VITALS: BP 127/73; PULSE 72; RESP 14; TEMP 37.9; O2SAT 98
[2025-05-11 06:54] LABS: Procalcitonin 0.6 ng/mL
[2025-05-11 06:57] LABS: CRP 18.9 mg/dL (<1.0)
--- NOTE | 2025-05-11 07:13 | P.HP_ITS ---
H&P: HPI History of Present Illness Date/Time: 05/11/25 07:13 Chief Complaint: positive BC Narrative: 60-year-old male with positive blood cultures. Patient was seen in ED on 05/09/25, diagnosed with the UTI was given a dose of ceftriaxone discharged on cephalexin. Patient said last night took a dose of cephalexin a got home and he vomited once, was able to take another dose and kept it down. Patient reports some chills and fevers yesterday, 05/10. Denies any abdominal pain, back pain, flank pain, diarrhea, chest pain, difficulty breathing, or symptoms. Patient's blood culture show gram negative bacili In ED: CBC 10.4. Metabolic panel with normal kidney function. Urine still does show evidence of infection. This was sent for culture, new set of blood cultures obtained. Previous blood cultures showing Gram-negative bacilli. Patient is started on IV Rocephin which will be continued. Pt is pleasant, eating. Denies any pain, was having challis last night but nothing today. Pt family at the bedside assisting with translation. Pt and speaks and understand some indonesian though. Review of Systems Review of Systems: All systems reviewed & are unremarkable except as noted in HPI and below PMFSH Past Medical History Medical History Hypertension Diabetes mellitus Social History Social History (Updated 04/20/24 @ 10:32 by Richelle Rdz MD) Social History: Initially from [place]; Surinamese as second language Has a daughter Smoking status: Never smoker Alcohol intake: never Substance use: never Substance use type: does not use Lack of Transportation: No Lack of Food: Never True Current Housing: I Have Housing Concerned About Future Housing: No Difficulty Paying Gas/Electric Bills: No Difficulty Paying for Meds: No Currently Unemployed: No Education: High School Diploma/GED Difficulty w/ Childcare or Family Care: No Occupation/Education: occupation 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 Spiritual care concerns: No Meds Home Medications and Allergies Home Medications ?Medication ?Instructions ?Recorded ?Confirmed ?Type metformin 500 mg tablet 1,000 mg PO BID 05/02/2106/24 History acetaminophen 500 mg capsule 1,000 mg (2 x 500 mg) PO Q6H PRN 04/20/24 05/10/25 Rx pain #20 caps ibuprofen 600 mg tablet 600 mg PO TID PRN pain #20 t abs 04/20/24 05/10/25 Rx cephalexin 500 mg capsule 500 mg PO Q8H 7 days #21 cap s 05/09/25 05/10/25 Rx aspirin 81 mg tablet,delayed 81 mg PO DAILY 05/10/25 0 05/10/25 History release (Adult Low Dose Aspirin) glimepiride 1 mg tablet 2 mg PO DAILY 05/10/2505/10 History Allergies Allergy/AdvReac Type Severity Reaction Status Date / Time No Known Allergies Allergy Verified 05/09/25 03:52 Vital Signs Vital Signs - 24 hr 05/10/25 16:32 05/10/25 17:12 05/10/25 18:39 Temperature 97.8 F Pulse Rate 66 62 79 Respiratory Rate 16 16 20 Blood Pressure 127/68 130/84 125/95 H Pulse Oximetry 100 100 100 Oxygen Delivery Room Air 05/10/25 21:55 05/10/25 22:00 05/10/25 22:15 Temperature 99.0 F 99.1 F Pulse Rate 71 71 Respiratory Rate 16 16 Blood Pressure 129/78 129/78 Pulse Oximetry 99 99 Oxygen Delivery Room Air 05/11/25 05:52 05/11/25 06:45 Temperature 102.7 F H 100.3 F H Pulse Rate 72 Respiratory Rate 14 Blood Pressure 127/73 Pulse Oximetry 98 Oxygen Delivery Exam Const: General: comfortable Resp: Effort & Inspection: normal respiratory effort Auscultation: clear to auscultation bilaterally Cardio: Rate: regular rate Rhythm: regular rhythm GI: GI Palp: Yes Soft to palpation Skin: General skin exam: normal color Neuro: Motor exam (neuro): 5/5 motor strength present throughout Extrem: General: normal to inspection Psych: Affect: normal affect H&P: Results Labs Labs: Short CBC 05/10/25 05/11/25 Range/Units 16:52 05:41 WBC 10.4 H 9.3 (4.5-10.0) K/mm3 Hgb 13.1 L 13.2 L (14.0-18.0) g/dL Hct 39.8 L 38.7 L (42.0-52.0) % Plt Count 170 174 (150-375) k/mm3 [facility] 05/10/25 05/11/25 16:52 05:41 Sodium 136 L 137 Potassium 4.6 4.4 Chloride 105 106 Carbon Dioxide 23 20 L BUN 12 11 Creatinine 0.91 0.84 Glucose 115 H 135 H Calcium 8.7 8.5 Liver Function 05/10/25 Range/Units 16:52 Total Bilirubin 0.6 (0.2-1.3) mg/dL AST 35 (17-59) U/L ALT 26 (6-50) U/L Alkaline Phosphatase 68 (38-126) U/L Albumin 4.1 (3.5-5.1) g/dL Urine 05/10/25 Range/Units 16:55 Urine Color Yellow (Yellow) Urine Appearance Clear (Clear) Urine pH 6.0 (5.0-9.0) Ur Specific [place] 1.017 (1.001-1.035) Urine Protein 1+ H (Negative) mg/dL Urine Glucose (UA) Negative (Negative) mg/dL Assessment and Plan Assessment and plan (1) Bacteremia: Code(s): R78.81 - Bacteremia Status: Acute (2) Urinary tract infection: Code(s): N39.0 - Urinary tract infection, site not specified Status: Inactive Plan Patient was seen in ED on 05/09/25, diagnosed with the UTI was given a dose of ceftriaxone discharged on cephalexin. BC were drawn in ed- grow some type of bacteria as yet to be identified. Pt was called and advised to report back to the hospital. Pt does not have s/s of systemic infection- VS stable, afebrile, except mild elevation in wbc. CBC 10.4. Metabolic panel with normal kidney function. Urine still does show evidence of infection. This was sent for culture, new set of blood cultures obtained. Previous blood cultures showing Gram-negative bacilli. Patient is started on IV Rocephin.\ - will continue rocephin q24h and wait for BC and urine culture results. - will hold glimepiride, metfromin and he was started on high dose SS- will change it to low dose and add lantus 5 units, hypoglycemic protocol hga1c 05/10/25- 6.9 -daily labs Pt is a full code Lovenox ordered for dvt prophylaxis Card.const diet home meds reviewed and restarted per rn cardiology Quality VTE Prophylaxis VTE prophylaxis: pharmacologic ordered Hospitalist [facility] Advance Care Plan I have confirmed that the patient's Advanced Care Plan is present, code status is documented, or surrogate decision maker is listed in patient medical record.: Yes Medication Reconciliation I have utilized all available resources to obtain, update and review the patients current medications (includes all prescriptions, OTC, herbals, cannabis, and nutritional supplements).: Yes
[2025-05-11 07:40] VITALS: TEMP 37.4
[2025-05-11] MEDS: ENOXAPARIN 40 MG/0.4 ML SYRINGE SUB-Q (09:10)
[2025-05-11] MEDS: ASPIRIN 81 MG ENTERIC TABLET PO (09:10)
[2025-05-11 14:00] VITALS: BP 119/76; PULSE 58; RESP 18; TEMP 37.1; O2SAT 100
[2025-05-11] MEDS: cefTRIAXone 2 GM in SODIUM CHLORIDE 0.9% IV 100 ML 200 ML IVPB (18:55)
[2025-05-11 21:57] VITALS: BP 121/76; PULSE 55; RESP 24; TEMP 36.7; O2SAT 98
[2025-05-11] MEDS: INSULIN GLARGINE (*BKC) 100 UNITS/ML SUB-Q (22:22)
[2025-05-12] MEDS: ACETAMINOPHEN 500 MG TABLET 1000 MG PO (05:03)
[2025-05-12 06:00] VITALS: BP 123/70; PULSE 59; RESP 20; TEMP 37; O2SAT 99
[2025-05-12 06:23] LABS: Hematocrit 38.9 % (42.0-52.0); Hemoglobin 12.8 g/dL (14.0-18.0); Mean Corpuscular HGB Conc 32.9 g/dl (32-36); Mean Corpuscular Hemoglobin 29.2 pg (26-34); Mean Corpuscular Volume 88.8 fl (80-100); Platelet Count Result 192 k/mm3 (150-375); Red Blood Count 4.38 M/mm3 (4.6-6.20); White Blood Count 8.3 K/mm3 (4.5-10.0)
[2025-05-12 06:50] LABS: Alanine Aminotransferase 35 U/L (6-50); Albumin Level 3.9 g/dL (3.5-5.1); Alkaline Phosphatase 84 U/L (38-126); Anion Gap 6 mmol/L (4-12); Aspartate Amino Transferase 39 U/L (17-59); Bilirubin,Total 0.5 mg/dL (0.2-1.3); Blood Urea Nitrogen 12 mg/dL (9-20); Calcium 8.7 mg/dL (8.4-10.2); Carbon Dioxide 24 mmol/L (22-30); Chloride 106 mmol/L (98-107); Estimated CRCL calculation 86 ml/min; Estimated Glomerular Filt Rate > 60; Glucose 130 mg/dL (65-110); Potassium 4.7 mmol/L (3.4-5.0); Sodium 136 mmol/L (137-145); Total Protein 7.6 g/dL (6.3-8.2)
[2025-05-12 07:04] LABS: CRP 15.3 mg/dL (<1.0); Procalcitonin 0.4 ng/mL
[2025-05-12] MEDS: ASPIRIN 81 MG ENTERIC TABLET PO (08:41)
[2025-05-12] MEDS: ENOXAPARIN 40 MG/0.4 ML SYRINGE SUB-Q (08:42)
--- NOTE | 2025-05-12 11:38 | PM.IMPN ---
Progress Note: A&P Assessment and Plan (1) Bacteremia: Code(s): R78.81 - Bacteremia Status: Acute Assessment and Plan: Will continue with IV antibiotics. Culture pending. (2) Urinary tract infection: Code(s): N39.0 - Urinary tract infection, site not specified Status: Inactive Assessment and Plan: Will continue with IV antibiotic. Culture pending. Plan Patient was seen in ED on 05/09/25, diagnosed with the UTI was given a dose of ceftriaxone discharged on cephalexin. BC were drawn in ed- grow some type of bacteria as yet to be identified. Pt was called and advised to report back to the hospital. Pt does not have s/s of systemic infection- VS stable, afebrile, except mild elevation in wbc. CBC 10.4. Metabolic panel with normal kidney function. Urine still does show evidence of infection. This was sent for culture, new set of blood cultures obtained. Previous blood cultures showing Gram-negative bacilli. Patient is started on IV Rocephin.\ - will continue rocephin q24h and wait for BC and urine culture results. - will hold glimepiride, metfromin and he was started on high dose SS- will change it to low dose and add lantus 5 units, hypoglycemic protocol hga1c 05/10/25- 6.9 -daily labs Pt is a full code Lovenox ordered for dvt prophylaxis Card.const diet home meds reviewed and restarted per infusion pharmacist Subjective Date/time seen: 05/12/25 11:38 Interval history: Patient was seen during the morning today. Patient is feeling much better. No shortness of breath or chest pain. No abdominal pain, nausea vomiting. Mood stable. Review of Systems Review of Systems: All systems reviewed & are unremarkable except as noted in HPI and below Exam Narrative: Const: General: comfortab le Resp: Effort & Inspectio n: normal respirat ory effort Auscul tation: clear to a uscultation bilate rally Cardio: Rate: regular rate Rhythm: regular rhythm GI: GI Palp: Yes Soft to palpation Skin: General skin exam: normal color Neuro: Motor exam (neuro) : 5/5 motor streng th present through out Extrem: General: normal to inspection Psych: Affect: normal aff ect Const: General: comfortable Resp: Effort & Inspection: normal respiratory effort Auscultation: clear to auscultation bilaterally Cardio: Rate: regular rate Rhythm: regular rhythm Skin: General skin exam: normal color Neuro: Motor exam (neuro): 5/5 motor strength present throughout Extrem: General: normal to inspection Psych: Affect: normal affect Objective Data Vital Signs Vital Signs: Vital Signs - 24 hr 05/11/25 14:00 05/11/25 21:57 05/11/25 22:21 Temperature 37.1 C 36.7 C Pulse Rate 58 L 55 L Respiratory Rate 18 24 H Blood Pressure 119/76 121/76 Pulse Oximetry 100 98 Oxygen Delivery Room Air 05/12/25 06:00 05/12/25 08:00 Temperature 37.0 C Pulse Rate 59 L Respiratory Rate 20 Blood Pressure 123/70 Pulse Oximetry 99 Oxygen Delivery Room Air Intake/Output Intake/Output: Intake & Output 05/09/25 05/10/25 05/11/25 05/12/25 23:59 23:59 23:59 23:59 Intake Total 50 2120 994 Output Total 200 Balance 50 2120 794 Meds/Results Medications: Active Medications Generic Name Dose Route Start Last Admin Trade Name Freq PRN Reason Stop Dose Admin Acetaminophen 1,000 mg 05/10/25 22:10 05/12/25 05:03 Acetaminophen 500 Mg Tablet PO 1,000 mg Q6H PRN Administration Pain 1-3 Hydrocodone Bitart/Acetaminophen 1 tab 05/10/25 18:23 Hydrocodone/Acetaminophen (*Crx) 5-325 Mg Tablet PO Q4H PRN Moderate Pain (4-6) Aspirin 81 mg 05/11/25 09:00 05/12/25 08:41 Aspirin 81 Mg Enteric Tablet PO 81 mg DAILY GUY Administration Bisacodyl 5 mg 05/10/25 18:23 Bisacodyl 5 Mg Tablet Ec PO DAILY PRN Constipation Calcium Carbonate 200 mg 05/10/25 18:23 Calcium Carbonate (Tums) 500 Mg (200 Mg Elemental) PO Q6H PRN Indigestion Dextrose 12.5 gm 05/10/25 22:10 Dextrose 50% 25 Gm/50 Ml Syringe IV PUSH PRN PRN Hypoglycemia Protocol Enoxaparin Sodium 40 mg 05/11/25 09:00 05/12/25 08:42 Enoxaparin 40 Mg/0.4 Ml Syringe SUB-Q 40 mg DAILY GUY Administration Glucagon 1 mg 05/10/25 22:10 Glucagon For Inj 1 Mg Vial IM PRN PRN Hypoglycemia Protocol Glucose 15 gm 05/10/25 22:10 Glucose Oral Gel 15 Gm Of Glucse In 37.5 Gm Tube PO PRN PRN Hypoglycemia Protocol Dextrose 1,000 mls @ 100 mls/hr 05/10/25 22:10 Dextrose 5% 1,000 Ml IVPB PRN PRN Hypoglycemia Protocol Ceftriaxone Sodium 2 gm/ 100 mls @ 200 mls/hr 05/11/25 19:00 05/11/25 19:25 Sodium Chloride IVPB Infused Q24H GUY Infusion Ibuprofen 600 mg 05/10/25 22:10 Ibuprofen 600 Mg Tablet PO TID PRN Pain 4-6 Insulin Aspart 2 - 5 units 05/11/25 12:00 05/12/25 11:31 Insulin Aspart (*Bkc) 100 Units/Ml SUB-Q Not Given [facility] Protocol Insulin Glargine 5 units 05/11/25 21:00 05/11/25 22:22 Insulin Glargine (*Bkc) 100 Units/Ml SUB-Q 5 units HS GUY Administration Morphine Sulfate 2 mg 05/10/25 18:23 Morphine Sulfate (*Crx) 2 Mg/Ml Inj IV PUSH Q4H PRN Pain Rated 7-10 Naloxone HCl 0.1 mg 05/10/25 18:23 Naloxone Hcl 0.4 Mg/Ml Vial IV PUSH Q2M PRN Opiate Reversal Ondansetron HCl 4 mg 05/10/25 18:23 Ondansetron Inj 4 Mg/2 Ml Vial IV PUSH Q6H PRN Nausea And Vomiting Labs Labs: Laboratory Results - last 24 hr 05/11/25 05/11/25 05/12/25 16:40 19:31 06:10 WBC 8.3 RBC 4.38 L Hgb 12.8 L Hct 38.9 L MCV 88.8 MCH 29.2 MCHC 32.9 RDW 13.0 Plt Count 192 MPV 10.9 H Sodium 136 L Potassium 4.7 Chloride 106 Carbon Dioxide 24 Anion Gap 6 BUN 12 Creatinine 0.92 Estim Creat Clear Calc 86 Estimated GFR > 60 Glucose 130 H POC Capillary Glucose 110 H 156 H Calcium 8.7 Total Bilirubin 0.5 AST 39 ALT 35 Alkaline Phosphatase 84 C-Reactive Protein 15.3 H Total Protein 7.6 Albumin 3.9 Procalcitonin 0.4 05/12/25 07:55 WBC RBC Hgb Hct MCV MCH MCHC RDW Plt Count MPV Sodium Potassium Chloride Carbon Dioxide Anion Gap BUN Creatinine Estim Creat Clear Calc Estimated GFR Glucose POC Capillary Glucose 127 H Calcium Total Bilirubin AST ALT Alkaline Phosphatase C-Reactive Protein Total Protein Albumin Procalcitonin Quality VTE Prophylaxis VTE prophylaxis: pharmacologic ordered
[2025-05-12 14:00] VITALS: BP 138/82; PULSE 60; RESP 18; TEMP 36.6; O2SAT 99
[2025-05-12] MEDS: IBUPROFEN 600 MG TABLET PO (16:32)
[2025-05-12] MEDS: cefTRIAXone 2 GM in SODIUM CHLORIDE 0.9% IV 100 ML 200 ML IVPB (18:39)
[2025-05-12] MEDS: HYDROcodone/acetaminophen (*CRX) 5-325 MG TABLET 1 TAB PO (19:37)
[2025-05-12] MEDS: INSULIN GLARGINE (*BKC) 100 UNITS/ML SUB-Q (20:55)
[2025-05-12 21:34] VITALS: BP 136/81; PULSE 52; RESP 16; TEMP 36.4; O2SAT 99
[2025-05-13 06:00] VITALS: BP 122/76; PULSE 53; RESP 20; TEMP 37.1; O2SAT 99
[2025-05-13] MEDS: ACETAMINOPHEN 500 MG TABLET 1000 MG PO ×2 (06:26→19:45)
[2025-05-13 07:00] LABS: CRP 8.2 mg/dL (<1.0)
[2025-05-13 07:18] LABS: Procalcitonin 0.2 ng/mL
[2025-05-13] MEDS: ENOXAPARIN 40 MG/0.4 ML SYRINGE SUB-Q (08:53)
[2025-05-13] MEDS: ASPIRIN 81 MG ENTERIC TABLET PO (08:53)
[2025-05-13 14:00] VITALS: BP 122/80; PULSE 56; RESP 18; TEMP 36.9; O2SAT 100
--- NOTE | 2025-05-13 17:31 | PM.IMPN ---
Progress Note: A&P Assessment and Plan (1) Bacteremia: Code(s): R78.81 - Bacteremia Status: Acute Assessment and Plan: Reviewed blood culture Discontinue ceftriaxone Started on Augmentin Repeat blood culture tomorrow Possible source UTI (2) Urinary tract infection: Code(s): N39.0 - Urinary tract infection, site not specified Status: Inactive Assessment and Plan: Started Augmentin Subjective Date/time seen: 05/13/25 17:31 Interval history: Had a long discussion with the family. Reviewed blood culture and sensitivity. Discontinue ceftriaxone and started on Augmentin. Review of Systems Review of Systems: All systems reviewed & are unremarkable except as noted in HPI and below Exam Narrative: Const: General: comfortab le Resp: Effort & Inspectio n: normal respirat ory effort Auscul tation: clear to a uscultation bilate rally Cardio: Rate: regular rate Rhythm: regular rhythm GI: GI Palp: Yes Soft to palpation Skin: General skin exam: normal color Neuro: Motor exam (neuro) : 5/5 motor streng th present through out Extrem: General: normal to inspection Psych: Affect: normal aff ect Const: General: comfortable Resp: Effort & Inspection: normal respiratory effort Auscultation: clear to auscultation bilaterally Cardio: Rate: regular rate Rhythm: regular rhythm Skin: General skin exam: normal color Neuro: Motor exam (neuro): 5/5 motor strength present throughout Extrem: General: normal to inspection Psych: Affect: normal affect Objective Data Vital Signs Vital Signs: Vital Signs - 24 hr 05/12/25 19:55 05/12/25 21:34 05/13/25 06:00 Temperature 97.6 F 98.8 F Pulse Rate 52 L 53 L Respiratory Rate 16 20 Blood Pressure 136/81 122/76 Pulse Oximetry 99 99 Oxygen Delivery Room Air 05/13/25 08:00 05/13/25 14:00 Temperature 98.4 F Pulse Rate 56 L Respiratory Rate 18 Blood Pressure 122/80 Pulse Oximetry 100 Oxygen Delivery Room Air Intake/Output Intake/Output: Intake & Output 05/10/25 05/11/25 05/12/25 05/13/25 23:59 23:59 23:59 23:59 Intake Total 50 2120 1474 680 Output Total 200 Balance 50 2120 1274 680 Meds/Results Medications: Active Medications Generic Name Dose Route Start Last Admin Trade Name Freq PRN Reason Stop Dose Admin Acetaminophen 1,000 mg 05/10/25 22:10 05/13/25 06:26 Acetaminophen 500 Mg Tablet PO 1,000 mg Q6H PRN Administration Pain 1-3 Hydrocodone Bitart/Acetaminophen 1 tab 05/10/25 18:23 05/12/25 19:37 Hydrocodone/Acetaminophen (*Crx) 5-325 Mg Tablet PO 1 tab Q4H PRN Administration Moderate Pain (4-6) Amoxicillin/Clavulanate Potassium 1 tablet 05/13/25 13:20 05/13/25 14:02 Amoxicillin/Clavulanate K 875-125 Mg Tab PO 1 tablet Q12HR GUY Administration Aspirin 81 mg 05/11/25 09:00 05/13/25 08:53 Aspirin 81 Mg Enteric Tablet PO 81 mg DAILY GUY Administration Bisacodyl 5 mg 05/10/25 18:23 Bisacodyl 5 Mg Tablet Ec PO DAILY PRN Constipation Calcium Carbonate 200 mg 05/10/25 18:23 Calcium Carbonate (Tums) 500 Mg (200 Mg Elemental) PO Q6H PRN Indigestion Dextrose 12.5 gm 05/10/25 22:10 Dextrose 50% 25 Gm/50 Ml Syringe IV PUSH PRN PRN Hypoglycemia Protocol Enoxaparin Sodium 40 mg 05/11/25 09:00 05/13/25 08:53 Enoxaparin 40 Mg/0.4 Ml Syringe SUB-Q 40 mg DAILY GUY Administration Glucagon 1 mg 05/10/25 22:10 Glucagon For Inj 1 Mg Vial IM PRN PRN Hypoglycemia Protocol Glucose 15 gm 05/10/25 22:10 Glucose Oral Gel 15 Gm Of Glucse In 37.5 Gm Tube PO PRN PRN Hypoglycemia Protocol Dextrose 1,000 mls @ 100 mls/hr 05/10/25 22:10 Dextrose 5% 1,000 Ml IVPB PRN PRN Hypoglycemia Protocol Ibuprofen 600 mg 05/10/25 22:10 05/12/25 16:32 Ibuprofen 600 Mg Tablet PO 600 mg TID PRN Administration Pain 4-6 Insulin Aspart 2 - 5 units 05/11/25 12:00 05/13/25 17:08 Insulin Aspart (*Bkc) 100 Units/Ml SUB-Q Not Given TIDWM GUY Protocol Insulin Glargine 5 units 05/11/25 21:00 05/12/25 20:55 Insulin Glargine (*Bkc) 100 Units/Ml SUB-Q 5 units HS GUY Administration Morphine Sulfate 2 mg 05/10/25 18:23 Morphine Sulfate (*Crx) 2 Mg/Ml Inj IV PUSH Q4H PRN Pain Rated 7-10 Naloxone HCl 0.1 mg 05/10/25 18:23 Naloxone Hcl 0.4 Mg/Ml Vial IV PUSH Q2M PRN Opiate Reversal Ondansetron HCl 4 mg 05/10/25 18:23 Ondansetron Inj 4 Mg/2 Ml Vial IV PUSH Q6H PRN Nausea And Vomiting Labs Labs: Laboratory Results - last 24 hr 05/12/25 05/13/25 05/13/25 19:49 06:13 07:39 POC Capillary Glucose 128 H 158 H C-Reactive Protein 8.2 H Procalcitonin 0.2 05/13/25 05/13/25 11:21 16:46 POC Capillary Glucose 164 H 177 H C-Reactive Protein Procalcitonin Quality VTE Prophylaxis VTE prophylaxis: pharmacologic ordered Hospitalist [facility] Advance Care Plan I have confirmed that the patient's Advanced Care Plan is present, code status is documented, or surrogate decision maker is listed in patient medical record.: Yes Medication Reconciliation I have utilized all available resources to obtain, update and review the patients current medications (includes all prescriptions, OTC, herbals, cannabis, and nutritional supplements).: Yes
[2025-05-13] MEDS: INSULIN GLARGINE (*BKC) 100 UNITS/ML SUB-Q (20:41)
[2025-05-13 21:22] VITALS: BP 142/74; PULSE 54; RESP 16; TEMP 36.8; O2SAT 100
[2025-05-14 06:00] VITALS: BP 123/71; PULSE 51; RESP 20; TEMP 36.8; O2SAT 100
[2025-05-14 06:34] LABS: Hematocrit 39.6 % (42.0-52.0); Hemoglobin 12.9 g/dL (14.0-18.0); Mean Corpuscular HGB Conc 32.6 g/dl (32-36); Mean Corpuscular Hemoglobin 29.0 pg (26-34); Mean Corpuscular Volume 89.0 fl (80-100); Platelet Count Result 225 k/mm3 (150-375); Red Blood Count 4.45 M/mm3 (4.6-6.20); White Blood Count 6.7 K/mm3 (4.5-10.0)
[2025-05-14 06:54] LABS: Alanine Aminotransferase 64 U/L (6-50); Albumin Level 3.9 g/dL (3.5-5.1); Alkaline Phosphatase 82 U/L (38-126); Anion Gap 9 mmol/L (4-12); Aspartate Amino Transferase 55 U/L (17-59); Bilirubin,Total 0.4 mg/dL (0.2-1.3); Blood Urea Nitrogen 14 mg/dL (9-20); Calcium 8.7 mg/dL (8.4-10.2); Carbon Dioxide 23 mmol/L (22-30); Chloride 106 mmol/L (98-107); Estimated CRCL calculation 98 ml/min; Estimated Glomerular Filt Rate > 60; Glucose 141 mg/dL (65-110); Potassium 4.5 mmol/L (3.4-5.0); Sodium 138 mmol/L (137-145); Total Protein 7.6 g/dL (6.3-8.2)
--- NOTE | 2025-05-14 09:40 | PM.IMPN ---
Progress Note: A&P Assessment and Plan (1) Bacteremia: Code(s): R78.81 - Bacteremia Status: Acute Assessment and Plan: Reviewed blood culture Discontinue ceftriaxone Started on Augmentin Repeat blood culture today (0 05/14) Possible source UTI (2) Urinary tract infection: Code(s): N39.0 - Urinary tract infection, site not specified Status: Inactive Assessment and Plan: Started Augmentin Subjective Date/time seen: 05/14/25 09:40 Interval history: Patient started on Augmentin according to the blood culture report. Will repeat the blood culture today. Review of Systems Review of Systems: All systems reviewed & are unremarkable except as noted in HPI and below Exam Narrative: Const: General: comfortab le Resp: Effort & Inspectio n: normal respirat ory effort Auscul tation: clear to a uscultation bilate rally Cardio: Rate: regular rate Rhythm: regular rhythm GI: GI Palp: Yes Soft to palpation Skin: General skin exam: normal color Neuro: Motor exam (neuro) : 5/5 motor streng th present through out Extrem: General: normal to inspection Psych: Affect: normal aff ect Const: General: comfortable Resp: Effort & Inspection: normal respiratory effort Auscultation: clear to auscultation bilaterally Cardio: Rate: regular rate Rhythm: regular rhythm Skin: General skin exam: normal color Neuro: Motor exam (neuro): 5/5 motor strength present throughout Extrem: General: normal to inspection Psych: Affect: normal affect Objective Data Vital Signs Vital Signs: Vital Signs - 24 hr 05/13/25 14:00 05/13/25 21:22 05/14/25 06:00 Temperature 98.4 F 98.2 F 98.2 F Pulse Rate 56 L 54 L 51 L Respiratory Rate 18 16 20 Blood Pressure 122/80 142/74 H 123/71 Pulse Oximetry 100 100 100 Intake/Output Intake/Output: Intake & Output 05/11/25 05/12/25 05/13/25 05/14/25 23:59 23:59 23:59 23:59 Intake Total 2119 1474 2019 400 Output Total 200 Balance 0 1274 2020 400 Meds/Results Medications: Active Medications Generic Name Dose Route Start Last Admin Trade Name Freq PRN Reason Stop Dose Admin Acetaminophen 1,000 mg 05/10/25 22:10 05/13/25 19:45 Acetaminophen 500 Mg Tablet PO 1,000 mg Q6H PRN Administration Pain 1-3 Hydrocodone Bitart/Acetaminophen 1 tab 05/10/25 18:23 05/12/25 19:37 Hydrocodone/Acetaminophen (*Crx) 5-325 Mg Tablet PO 1 tab Q4H PRN Administration Moderate Pain (4-6) Amoxicillin/Clavulanate Potassium 1 tablet 05/13/25 13:20 05/13/25 20:39 Amoxicillin/Clavulanate K 875-125 Mg Tab PO 1 tablet Q12HR GUY Administration Aspirin 81 mg 05/11/25 09:00 05/13/25 08:53 Aspirin 81 Mg Enteric Tablet PO 81 mg DAILY GUY Administration Bisacodyl 5 mg 05/10/25 18:23 Bisacodyl 5 Mg Tablet Ec PO DAILY PRN Constipation Calcium Carbonate 200 mg 05/10/25 18:23 Calcium Carbonate (Tums) 500 Mg (200 Mg Elemental) PO Q6H PRN Indigestion Dextrose 12.5 gm 05/10/25 22:10 Dextrose 50% 25 Gm/50 Ml Syringe IV PUSH PRN PRN Hypoglycemia Protocol Enoxaparin Sodium 40 mg 05/11/25 09:00 05/14/25 09:20 Enoxaparin 40 Mg/0.4 Ml Syringe SUB-Q Not Given DAILY GUY Glucagon 1 mg 05/10/25 22:10 Glucagon For Inj 1 Mg Vial IM PRN PRN Hypoglycemia Protocol Glucose 15 gm 05/10/25 22:10 Glucose Oral Gel 15 Gm Of Glucse In 37.5 Gm Tube PO PRN PRN Hypoglycemia Protocol Dextrose 1,000 mls @ 100 mls/hr 05/10/25 22:10 Dextrose 5% 1,000 Ml IVPB PRN PRN Hypoglycemia Protocol Ibuprofen 600 mg 05/10/25 22:10 05/12/25 16:32 Ibuprofen 600 Mg Tablet PO 600 mg TID PRN Administration Pain 4-6 Insulin Aspart 2 - 5 units 05/11/25 12:00 05/14/25 07:45 Insulin Aspart (*Bkc) 100 Units/Ml SUB-Q Not Given TIDWM GUY Protocol Insulin Glargine 5 units 05/11/25 21:00 05/13/25 20:41 Insulin Glargine (*Bkc) 100 Units/Ml SUB-Q 5 units HS GUY Administration Morphine Sulfate 2 mg 05/10/25 18:23 Morphine Sulfate (*Crx) 2 Mg/Ml Inj IV PUSH Q4H PRN Pain Rated 7-10 Naloxone HCl 0.1 mg 05/10/25 18:23 Naloxone Hcl 0.4 Mg/Ml Vial IV PUSH Q2M PRN Opiate Reversal Ondansetron HCl 4 mg 05/10/25 18:23 Ondansetron Inj 4 Mg/2 Ml Vial IV PUSH Q6H PRN Nausea And Vomiting Labs Labs: Laboratory Results - last 24 hr 05/13/25 05/13/25 05/13/25 11:21 16:46 19:55 WBC RBC Hgb Hct MCV MCH MCHC RDW Plt Count MPV Sodium Potassium Chloride Carbon Dioxide Anion Gap BUN Creatinine Estim Creat Clear Calc Estimated GFR Glucose POC Capillary Glucose 164 H 177 H 145 H Calcium Total Bilirubin AST ALT Alkaline Phosphatase Total Protein Albumin 05/14/25 05/14/25 05:56 07:40 WBC 6.7 RBC 4.45 L Hgb 12.9 L Hct 39.6 L MCV 89.0 MCH 29.0 MCHC 32.6 RDW 12.8 Plt Count 225 MPV 10.6 H Sodium 138 Potassium 4.5 Chloride 106 Carbon Dioxide 23 Anion Gap 9 BUN 14 Creatinine 0.80 Estim Creat Clear Calc 98 Estimated GFR > 60 Glucose 141 H POC Capillary Glucose 134 H Calcium 8.7 Total Bilirubin 0.4 AST 55 ALT 64 H Alkaline Phosphatase 82 Total Protein 7.6 Albumin 3.9 Quality VTE Prophylaxis VTE prophylaxis: pharmacologic ordered Hospitalist [facility] Advance Care Plan I have confirmed that the patient's Advanced Care Plan is present, code status is documented, or surrogate decision maker is listed in patient medical record.: Yes Medication Reconciliation I have utilized all available resources to obtain, update and review the patients current medications (includes all prescriptions, OTC, herbals, cannabis, and nutritional supplements).: Yes
[2025-05-14] MEDS: ASPIRIN 81 MG ENTERIC TABLET PO (09:48)
--- NOTE | 2025-05-14 12:37 | P.DS_ITS ---
DS: Admitting Diagnosis Discharge Date 05/14/2025 Admitting Diagnosis Positive blood culture DS: Discharge Diagnosis Discharge Diagnosis (1) Bacteremia: Code(s): R78.81 - Bacteremia Status: Acute Assessment and Plan: Please refer to hospital course for brief summary Reviewed blood culture Discontinue ceftriaxone Started on Augmentin Repeat blood culture today (0 05/14) Possible source UTI (2) Urinary tract infection: Code(s): N39.0 - Urinary tract infection, site not specified Status: Inactive Assessment and Plan: Started Augmentin DS: Summary Hospital Course Hospital Course: 60-year-old male with positive blood cultures. Patient was seen in ED on 05/09/25, diagnosed with the UTI was given a dose of ceftriaxone discharged on cephalexin. Patient said last night took a dose of cephalexin a got home and he vomited once, was able to take another dose and kept it down. Patient reports some chills and fevers yesterday, 05/10. Denies any abdominal pain, back pain, flank pain, diarrhea, chest pain, difficulty breathing, or symptoms. Patient's blood culture show gram negative bacili In ED: CBC 10.4. Metabolic panel with normal kidney function. Urine still does show evidence of infection. This was sent for culture, new set of blood cultures obtained. Previous blood cultures showing Gram-negative bacilli. Patient is started on IV Rocephin which will be continued. 05/13-0 : Patient was started on Augmentin after reviewing the blood culture. Today repeated the blood culture after starting Augmentin yesterday. Patient 2nd blood culture was negative. Although for unknown reason patient was in ceftriaxone which is resistant according to the primary blood culture report on 05/09/2025. Patient will be discharged with Augmentin for 10 days. Our office staff will follow-up with blood culture report On the day of discharge, the patient was seen and examined. Vital signs were stable. Physical exam were stable and labs were reviewed at length. Discharge instructions, medications, and follow-up appointments were discussed with the patient at length and all day questions were answered. ER warnings were given. Status at Discharge Cognitive/behavioral status at discharge: Stable Time Spent with Patient Time attestation: Total time spent providing and/or coordinating discharge services: 45 minutes Exam Narrative: Const: General: comfortab le Resp: Effort & Inspectio n: normal respirat ory effort Auscul tation: clear to a uscultation bilate rally Cardio: Rate: regular rate Rhythm: regular rhythm GI: GI Palp: Yes Soft to palpation Skin: General skin exam: normal color Neuro: Motor exam (neuro) : 5/5 motor streng th present through out Extrem: General: normal to inspection Psych: Affect: normal aff ect Const: General: comfortable Resp: Effort & Inspection: normal respiratory effort Auscultation: clear to auscultation bilaterally Cardio: Rate: regular rate Rhythm: regular rhythm Skin: General skin exam: normal color Neuro: Motor exam (neuro): 5/5 motor strength present throughout Extrem: General: normal to inspection Psych: Affect: normal affect DS: Data Data Completed and Pending Labs on day of discharge: Labs from last 24 hours 05/14/25 05/14/25 05/14/25 12:12 07:40 05:56 WBC 6.7 RBC 4.45 L Hgb 12.9 L Hct 39.6 L MCV 89.0 MCH 29.0 MCHC 32.6 RDW 12.8 Plt Count 225 MPV 10.6 H Sodium 138 Potassium 4.5 Chloride 106 Carbon Dioxide 23 Anion Gap 9 BUN 14 Creatinine 0.80 Estim Creat Clear Calc 98 Estimated GFR > 60 Glucose 141 H POC Capillary Glucose 205 H 134 H Calcium 8.7 Total Bilirubin 0.4 AST 55 ALT 64 H Alkaline Phosphatase 82 Total Protein 7.6 Albumin 3.9 05/13/25 05/13/25 19:55 16:46 WBC RBC Hgb Hct MCV MCH MCHC RDW Plt Count MPV Sodium Potassium Chloride Carbon Dioxide Anion Gap BUN Creatinine Estim Creat Clear Calc Estimated GFR Glucose POC Capillary Glucose 145 H 177 H Calcium Total Bilirubin AST ALT Alkaline Phosphatase Total Protein Albumin Preliminary micro results at discharge 05/10/25 18:42 Blood Culture - Preliminary Blood 05/10/25 18:43 Blood Culture - Preliminary Blood Discharge Plan Discharge Attending physician on discharge: Mike Santana Discharging Clinician: Mike Santana Anticipated Discharge Date/Time: 05/14/25 12:44 Patient Disposition: Home Activity: as tolerated Diet: as tolerated and diabetic Discharge Instructions: Please follow-up with the blood culture Please follow-up with primary care physician within a week upon discharge In case of any concerning symptoms including fever please return to ED Patient Instructions: Antibiotic Form Patient Language: Mongolian Stand Alone Forms: General Discharge Information, Work/School Release IP Follow-up/Referrals: gini villalobos [Other] UNKNOWN,DOCTOR [Primary Care Provider] Discharge Medications: New bisacodyl [Laxative (bisacodyl)] 5 mg Tablet,Delayed Release (Dr/Ec) 5 mg PO DAILY PRN (Reason: Constipation) Qty: 10 0RF amoxicillin-pot clavulanate 875-125 mg tablet 1 tablet PO Q12H Qty: 20 0RF Saccharomyces boulardii [Florastor] 250 mg capsule 250 mg PO BID Qty: 30 0RF Continued metformin 500 mg tablet 1,000 mg PO BID acetaminophen 500 mg capsule 1,000 mg PO Q6H PRN (Reason: pain) Qty: 20 0RF ibuprofen 600 mg tablet 600 mg PO TID PRN (Reason: pain) Qty: 20 0RF glimepiride 1 mg tablet 2 mg PO DAILY aspirin [Adult Low Dose Aspirin] 81 mg tablet,delayed release (DR/EC) 81 mg PO DAILY Discontinued cephalexin 500 mg capsule 500 mg PO Q8H 7 Days Qty: 21 0RF Date of admission: 05/11/25 07:16 Primary Care Provider: UNKNOWN,DOCTOR Admitting Provider: Nohelia Lee Attending physician on admission: Nohelia Lee Condition: Stable
--- NOTE | 2025-05-15 06:29 | WPDCDIQUERY2 ---
CDI Query Clarification Request Bacteremia has been documented, using the CDC definitions below, please clarify the appropriate diagnosis for your patients clinical presentation and severity of illness. ? Septicemia: Systemic disease (sepsis) associated with positive blood cultures. ? Sepsis: An infection-induced syndrome without organ dysfunction. ? Severe Sepsis: Sepsis with associated acute organ dysfunction. ? Septic Shock: Severe sepsis in which the cardiovascular system begins to fail, blood pressure drops, and vital organs are deprived of adequate blood supply. Hospitalist documented: (1) Bacteremia: Code(s): R78.81 - Bacteremia Status: Acute Assessment and Plan: Reviewed blood culture Discontinue ceftriaxone Started on Augmentin Repeat blood culture tomorrow Possible source UTI (2) Urinary tract infection: Code(s): N39.0 - Urinary tract infection, site not specified Status: Inactive Assessment and Plan: Started Augmentin ER documented: 60-year-old male presents to the ER complaining of positive blood cultures. Patient said into the ER for positive blood culture. Patient was seen here yesterday diagnosed with the UTI was given a dose of ceftriaxone discharged on cephalexin. Patient said last night took a dose of cephalexin a got home and he vomited once. Patient says he was able to get another dose down this morning has not vomited since. Patient reports feeling better today but does report some chills and fevers this morning. Patient denies any abdominal pain, back pain, flank pain, diarrhea, chest pain, difficulty breathing, or symptoms. Patient's blood culture state they are pending but did grow some type of bacteria as yet to be identified. Differential diagnosis: Likely other (UTI, pyelonephritis, bacteremia, sepsis) WBC: 05/09: 10.2 05/10: 10.4 05/11: 9.3 05/09 documented fever 103.1 Blood Culture, Routine Final 05/12/25 LC Organism: Escherichia coli. *ABNORMAL* Susceptibility profile is consistent with a probable ESBL. Multi-Drug Resistant Organism Recovered from aerobic and anaerobic bottles. PRELIM RESULT CALLED TO AND READ BACK BY CINTHYA Garrett ON 05/10/2025 RFX UR CX DUE TO ABN UA R82.90 Final 09/12/25-1408 LC Organism: Escherichia coli. *ABNORMAL* <Jonelle Freed RN - Last Filed: 05/15/25 06:35> Clarified Diagnosis Clarified Diagnosis: ? Septicemia: Systemic disease (sepsis) associated with positive blood cultures <Mike Santana MD - Last Filed: 05/16/25 11:16>
--- NOTE | 2025-05-23 10:28 | PC.NURSE ---
Blood cx show no growth.
== END 2025-05-14 13:40 | disposition home or self-care (01) | DRG 690 ==
LOC: ANHED 18:29 → ANH3MEDSUR 19:22
PROVIDERS: Nurse Practitioner; Student in an Organized Health Care Education/Training Program; Admitting Provider General Practice; Emergency Provider Physician Assistant; Visit Provider General Practice
DX: N39.0 Urinary tract infection, site not specified (principal); B96.20 Unspecified Escherichia coli [E. coli] as the cause of diseases classified elsewhere; E11.9 Type 2 diabetes mellitus without complications; I10 Essential (primary) hypertension
CPT/HCPCS: 36415; 71045; 74177; 80048; 80053; 81001; 82948; 83036; 83605; 83735; 84145; 85025; 85027; 85055; 85652; 86140; 87040; 87077; 87086; 87186; 87637; 93005; 96365; 96375; 99284; 99285; A9270; G0378; J0696; J1650; J1815; J1885; J7030; Q9967